=== PATIENT | male | born 1965 | race Two or more races ===

== ENCOUNTER 2025-03-18 20:36 | Emergency (ER) | payer OTHER, SELFPAY ==
[2025-03-18 20:40] VITALS: BP 143/92; PULSE 83; RESP 20; TEMP 36.6; O2SAT 98; BMI 30.9
--- NOTE | 2025-03-18 20:40 | ED_ITS ---
HPI - Extremity Injury (Upper) General Chief Complaint: Burn/Smoke Inhalation Stated Complaint: rt hand burn Time Seen by Provider: 03/18/25 21:03 Source: patient Mode of arrival: ambulatory Limitations: no limitations History of Present Illness ED Provider: Dr. Harriet Martino HPI narrative: Patient comes to the emergency room complaining of a burn to his right hand in the dorsum. Patient states that he was cooking dinner and she burned his hand with oil. Patient denies any other injuries. Patient states that this year he got a Tdap booster Related Data Previous Rx's ?Medication ?Instructions ?Recorded bacitracin 500 unit/gram topical 1 appl topical Q8H #40 ea 03/18/25 packet ketorolac 10 mg tablet 10 mg PO Q8H #15 tabs 03/18/25 Allergies Allergy/AdvReac Type Severity Reaction Status Date / Time No Known Allergies Allergy Verified 03/18/25 20:41 Review of Systems Review of Systems: Constitutional : No Weight loss, No Fever, No Chills, No Night Sweats, No Fatigue, No Malaise ENT/Mouth : No Hearing loss, No Ear Pain, No Nasal Congestion, No Sinus Pain, No Hoarseness, No sore throat, No Rhinorrhea, No Swallowing Difficulty Eyes: No Eye Pain, No Swelling, No Redness, No Foreign Body, No Discharge, No Vision Changes Cardiovascular : No Chest Pain, No SOB, No Dyspnea on Exertion, No Orthopnea, No Edema, No Palpitations Respiratory : No Cough, No Sputum, No Wheezing, No Smoke Exposure, No Dyspnea Gastrointestinal : No Nausea, No Vomiting, No Diarrhea, No Constipation, No abdominal Pain, No Hematochezia, No Melena Genitourinary : no irregular bleeding, No Dysuria, No Urinary Frequency, No Hematuria, No Urinary Incontinence, No Urgency, No Flank Pain, No Urinary Flow Changes, No Hesitancy Musculoskeletal : No joint pain, No Myalgias, No Joint Swelling Skin : Complaining of an oil burn to the dorsum of the right hand Neuro : No Weakness, No Numbness, No Paresthesias, No Loss of Consciousness, No Dizziness, No Headache Psych : No Anxiety/Panic, No Depression, No SI/HI/AH/VH, No Social Issues, Heme/Lymph: No Bruising, No Bleeding,No Lymphadenopathy Endocrine : No Polyuria, No Polydipsia, No Temperature Intolerance PMFSH Social History Social History Advance Directives: No Advance Directives Information Provided: No Physical Exam Vital Signs: Vital Signs: Last Vital Signs Temp 97.8 F 03/18/25 20:40 Pulse 83 03/18/25 20:40 Resp 20 03/18/25 20:40 BP 143/92 H 03/18/25 20:40 Pulse Ox 98 03/18/25 20:40 O2 Del Method Room Air 03/18/25 20:40 BMI result Body Mass Index 30.9 Const: Other: Appearance: Alert. Oriented X3. No acute distress. Eyes: Pupils equal, round and reactive to light. ENT: Pharynx normal. Neck: Normal inspection. Neck supple. No lymph nodes noted. No crepitus CVS: Normal heart rate and rhythm. Pulses normal. Normal S1 and S2 Respiratory: No respiratory distress. Breath sounds normal. No Wheezing. No rales Abdomen: Soft and nontender. No rigidity. No distention. Skin: Skin warm and dry. Normal skin color. Normal skin turgor. See extremities below Extremities: No lower extremity edema. No Lacerations. No Rash, in the dorsum of the right hand, is erythematous, swollen, palm is normal. Not a circumferential burn. No blisters present at this time Neuro: Oriented X 3. No motor deficit. No sensory deficit. Moving all extremities. No slurred speech. CN 2 through 12 grossly intact Psych: calm, cooperative, normal affect Course Course Course Narrative: This is an RME: Additional HPI, ROS, PE not included below will be deferred to primary provider. RME assessment and note performed by: Jessy Light PA-C 59-year-old man without significant medical history presents to the ED after burning his right hand on hot oil while cooking tonight. States last tetanus shot was this year. PE: mild edema over dorsal hand, and ventral 2-4th digits. Pain with ROM Plan: Evaluation from primary provider Medical Decision Making Medical Decision Making MDM Narrative: I discussed the physical exam with the patient, patient has a 2nd degree burn. Patient is up-to-date with his Tdap Patient was given a dose of IM ketorolac and bacitracin was applied to the burned area. Patient instructed to follow-up with his primary care physician. Discharge Plan Discharge Clinical Impression: Burn of skin due to hot oil Patient Disposition: Home, Self-Care Instructions: Second-Degree Burn (ED) Additional Instructions: Please follow-up with your primary care physician tomorrow. If you have any worsening or new symptoms, please return to the emergency room or call 911 Prescriptions: New ketorolac 10 mg tablet 10 mg PO Q8H Qty: 15 0RF Rx Instructions: Do not use this medication with ibuprofen or other NSAIDs, if needed, acetaminophen is okay bacitracin 500 unit/gram packet 1 appl topical Q8H Qty: 40 0RF Stand Alone Forms: Work/School Release Print Language: Guyanese
[2025-03-18] MEDS: Ketorolac Tromethamine 60 MG/2 ML VIAL IM (21:24)
[2025-03-18] MEDS: Bacitracin Oint 0.9 GM PACKET 2 APPL TOPICAL (21:25)
[2025-03-18 21:35] VITALS: BP 143/92; PULSE 83; RESP 20; TEMP 36.6; O2SAT 98
== END 2025-03-18 21:36 | disposition home or self-care (01) ==
PROVIDERS: Emergency Provider Emergency Medicine
DX: T23.201A Burn of second degree of right hand, unspecified site, initial encounter (principal); X10.2XXA Contact with fats and cooking oils, initial encounter; Y93.G3 Activity, cooking and baking; Y92.000 Kitchen of unspecified non-institutional (private) residence as the place of occurrence of the external cause; Y99.9 Unspecified external cause status; M79.641 Pain in right hand
CPT/HCPCS: 96372; 99283; 99284; J1885